=== PATIENT | female | born 1985 | race Two or more races ===

== ENCOUNTER 2022-06-03 09:29 | Emergency (ER) | payer OTHER, SELFPAY ==
--- NOTE | 2022-06-03 09:43 | ED.URI ---
HPI - URI/Sore Throat General Chief Complaint: Upper Respiratory Infection Stated Complaint: fatigued, vomitting, sore throat Time Seen by Provider: 06/03/22 09:44 Source: patient and RN notes reviewed Mode of arrival: ambulatory Limitations: no limitations History of Present Illness HPI Narrative: 36-year-old female presents to the [facility] with complaints of Worse then normal fatigue, Dizziness, sore throat since Thursday, 2 days. Reports intermittent shortness of breath. Worse when she lays on her back. Was seen at the ER in [facility] and was tested for COVID. Patient reports it was negative. 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 Per medical record a prescription for Augmentin was called in, patient states she did not pick it up. Denies chest pain. Denies any urinary symptoms. Last menstrual period, today On reevaluation patient informed provider that she also has a history of anemia. Related Data Allergies Allergy/AdvReac Type Severity Reaction Status Date / Time No Known Allergies Allergy Unverified 10/11/14 17:15 Review of Systems Review of Systems: All systems reviewed & are unremarkable except as noted in HPI and below Constitutional: Constitutional: Reports as per HPI, Reports no additional constitutional complaints, Denies chills, Reports fatigue, Denies fever(s) and Reports weakness (General) Eyes: Eyes: Reports no additional eye complaints ENT: Reports as per HPI and Reports sore throat Cardiovascular: Cardiovascular: Reports no additional cardiovascular complaints Respiratory: Respiratory: Reports no additional respiratory complaints Gastrointestinal: Gastrointestinal: Reports no additional gastrointestinal complaints Musculoskeletal: Musculoskeletal: Reports no additional musculoskeletal complaints Integumentary/Breasts: Skin/Breast: Reports system reviewed and no additional complaints, except as docu Neurologic: Reports system reviewed and no additional complaints, except as documented Psychiatric: Psychiatric: Reports no additional psychiatric complaints Allergic/Immunologic: Allergic/Immunologic: Reports no additional allergic/immunologic complaints [facility] Past Medical History Medical History (Updated 06/03/22 @ 15:23 by Carmen Gan APRN) Anemia Surgical History Surgical History (Updated 06/03/22 @ 15:19 by Carmen Gan APRN) No history of previous surgery Social History Social History (Updated 06/03/22 @ 15:19 by Carmen Gan APRN) Living arrangements: with family Occupation/Education: student Gender identity (if verbalized by the patient): Female Comments At the time of my signature, I reviewed and agree with the nursing past medical, surgical, social, and family history. There is no relevant family history pertinent to the patient complaint. Exam Const: General: no acute distress, alert and ill appearing acutely (mild) Nutritional Appearance: well nourished Orientation/consciousness: patient oriented x3 Limitations: no limitations HENMT: Head: normal to inspection Ears: external ears normal, TM's normal bilaterally and EAC's normal General nose exam: Normal external nose present and Normal nares present Face and sinus: normal facial exam Mouth: Yes Normal oral and palatal mucosa present, Yes lip normal and Yes moist mucous membranes Throat: posterior oropharynx normal and uvula midline Eyes: General: appearance normal, both eyes and all related structures Conjunctivae: conjunctival abnormality bilateral (pale) Pupils: Equal, round and reactive pupils present EOM: EOMs intact bilaterally Neck: Neck: normal visual inspection, no lymphadenopathy and no meningeal signs Chest: Chest palpation & inspection: normal inspection of the chest Resp: Effort & Inspection: normal respiratory effort and no use of accessory muscles Auscultation: clear to auscultation bilaterally, no crackles, no rales, no rhonchi and no wheezes Cardio: Rate: regular rate Rhythm: regular rhythm
[2022-06-03 09:46] VITALS: BP 132/81; PULSE 69; RESP 14; TEMP 36.3; O2SAT 100
[2022-06-03 10:08] VITALS: BP 119/84; BP 127/76; PULSE 64; PULSE 65
[2022-06-03 10:09] VITALS: BP 129/77; PULSE 69
== END 2022-06-03 10:34 | disposition home or self-care (01) ==
PROVIDERS: Emergency Provider Nurse Practitioner
DX: R53.83 Other fatigue (principal); Z20.822 Contact with and (suspected) exposure to COVID-19
CPT/HCPCS: 87426; 87804; 99203; C9803; G0463